=== PATIENT | female | born 1960 | race Caucasian/White ===

== ENCOUNTER 2024-01-23 00:34 | Emergency (ER) | payer MEDICARE, MEDICAID ==
[~2024-01-23] VITALS: Ht 154.9 cm; Wt 81.8 kg
[~2024-01-23 00:34] MED LIST: ASPI1TAB20 PO; BUPR-346 PO; GABA300C PO; GLYB2.5T8 PO; HYDR-4833 PO; HYDR25TA4 PO; INSUPOW; LEVO25TA2 PO; LIRA18IN2 SC; METF-370 PO
[2024-01-23] MEDS: CALCIUM CHL 100MG/ML 1,000 MG in D5W 5% 100 ML IV ONE (00:36)
[2024-01-23] MEDS: EPINEPHrine HCL 1 MG/10 ML SYRG IV ONE ×2 (00:38→00:59)
[2024-01-23] MEDS: SODIUM BICARB 8.4% 50Meq/50ml SYR Vial IV ONE ×7 (00:39→01:00)
[2024-01-23 00:41] VITALS: TEMP 99.7
[2024-01-23] MEDS: NOREPINEPHRINE 8 MG/250ML KIT 250 ML IV ONE (00:45)
[2024-01-23] MEDS: PROPOFOL 100 ML IV ONE (00:50)
[2024-01-23] MEDS: NOREPINEPHRINE 8 MG/250ML KIT 250 ML IV SCH (00:51)
[2024-01-23] MEDS: MAGNESIUM SULFATE 1GM/100ML 100 ML IV SCH (00:55)
[2024-01-23] MEDS: AMIODARONE BOLUS KIT 100 ML IV ONE (00:58)
[2024-01-23] MEDS: ATROPINE SULF 1 MG/10ml SYR IV ONE (01:01)
[2024-01-23] MEDS: InsuLIN REG 1unit/0.01ml Soln (100units/ml) IV ONE (01:03)
[2024-01-23] MEDS: DEXTROSE (50%) 50ML SYRG IV ONE (01:04)
[2024-01-23] MEDS: InsuLIN REG 1unit/0.01ml Soln (100units/ml) ONE (01:04)
[2024-01-23 01:05] VITALS: PULSE 96; RESP 11; O2SAT 80
[2024-01-23 01:07] VITALS: RESP 14
[2024-01-23] MEDS: EPINEPHrine HCL 250 ML IV ONE ×2 (01:13→01:17)
[2024-01-23 01:25] LABS: Basophils # (auto) 0.1 10 ^3/uL (0-0.2); Eosinophils # (auto) 0.1 10 ^3/uL (0-0.8); Eosinophils % (auto) 0.7 % (0.0-7.0); Lymphocytes # (auto) 3.2 10 ^3/uL (0.4-5.4); Neutrophils # (auto) 7.3 10 ^3/uL (1.6-8.6); Neutrophils % (auto) 62.2 % (37.0-80.0); Nucleated Red Blood Cells % 0.4 %; White Blood Cell 11.7 10^3/uL (4.4-10.8)
[2024-01-23 01:26] LABS: Basophils % (auto) 0.9 % (0.0-2.0); Hematocrit 17.1 % (36.0-46.0); Lymphocytes % (auto) 27.2 % (10.0-50.0); Mean Corpuscular Hemoglobin 29.9 pg (28.0-32.0); Mean Corpuscular Hgb Conc. 29.1 g/dL (32.0-36.0); Mean Corpuscular Volume 102.8 fL (80.0-100.0); Red Blood Cells 1.67 10^6/uL (4.0-5.20)
[2024-01-23 01:30] VITALS: PULSE 199; O2SAT 56
[2024-01-23 01:30] LABS: Red Cell Distribution Width 21.2 % (11.8-14.3)
[2024-01-23 01:39] LABS: Alanine Aminotransferase 18 U/L (7-40); Albumin 2.4 g/dL (3.2-4.8); Alkaline Phosphatase 91 U/L (46-116); Anion Gap 15 (5-15); Aspartate Aminotransferase 18 U/L (13-40); BUN/Creatinine Ratio 6.3 (10.0-20.0); Blood Urea Nitrogen 21 mg/dL (9-23); Calcium 12.1 mg/dL (8.7-10.4); Carbon Dioxide 21 mmol/L (20-30); Chloride 106 mmol/L (98-107); Glucose 328 mg/dL (74-106); INR 1.45 (0.9-1.15); Lipase 20 U/L (12-53); Magnesium 2.3 mg/dL (1.6-2.6); Partial Thromboplastin Time 25.4 SEC (24.5-34.5); Sodium 142 mmol/L (136-145)
[2024-01-23 01:40] LABS: Bilirubin, Total 0.2 mg/dL (0.2-1.0); Phosphorus 6.6 mg/dL (2.4-5.1)
[2024-01-23 01:43] LABS: Lactic Acid w/Reflex 12.5 mmol/L (0.4-2.0)
[2024-01-23 02:30] VITALS: BP 77/19
[2024-01-23] MEDS: PROPOFOL 100 ML IV SCH (02:30)
== END 2024-01-23 01:32 ==
LOC: ER 00:34 → EDBD 00:34 → ER 01:32
DX: I13.0 Hypertensive heart and chronic kidney disease with heart failure and stage 1 through stage 4 chronic kidney disease, or unspecified chronic kidney disease (principal); E11.22 Type 2 diabetes mellitus with diabetic chronic kidney disease; N18.9 Chronic kidney disease, unspecified; J96.90 Respiratory failure, unspecified, unspecified whether with hypoxia or hypercapnia; E03.9 Hypothyroidism, unspecified; Z88.0 Allergy status to penicillin; Z79.82 Long term (current) use of aspirin; Z79.4 Long term (current) use of insulin; Z79.84 Long term (current) use of oral hypoglycemic drugs; Z79.1 Long term (current) use of non-steroidal anti-inflammatories (NSAID); Z79.891 Long term (current) use of opiate analgesic
CPT/HCPCS: 31500; 36415; 36556; 71045; 80053; 82140; 83605; 83690; 83735; 83880; 84100; 84484; 85025; 85610; 85730; 87070; 87205; 92950; 93005; 96374; 96375; 99291; J0171; J1815; J2704; J7060; 96365; 96366; 96368; 96376